=== PATIENT | female | born 1970 | race Caucasian/White ===

== ENCOUNTER 2016-12-11 08:04 | Emergency (ER) | payer OTHER, BC ==
[2016-12-11] MEDS ORDERED: ACETAMINOPHEN 325 MG TABLET PO ONE (08:57)
[2016-12-11] MEDS ORDERED: ACETAMINOPHEN 325 MG TABLET ONE (09:01)
--- NOTE | 2016-12-11 09:07 | ERNOTE ---
Head Injury HPI - General Injury to: head Time Seen by Provider: 12/11/16 08:46 Source: patient Exam Limitations: no limitations - Immun/Allergies/Home Medications Immunization: IMMUNIZATION HX Immunizations Up to Date No History of Influenza Vaccine No Hx Pneumococcal Vaccination No Allergies/Adverse Reactions: Allergies Allergy/AdvReac Type Severity Reaction Status Date / Time No Known Allergies Allergy Verified 12/11/16 08:24 Home Medications: HOME MEDICATIONS ALPRAZolam [Xanax] 0.25 mg PO BID PRN 12/07/14 [Last Taken Unknown] ARIPiprazole [Abilify] 5 mg PO DAILY 12/07/14 [Last Taken Unknown] Venlafaxine HCl [Effexor Xr] 225 mg PO DAILY 12/25/14 [Last Taken Unknown] Metoprolol Succinate [Toprol Xl] 100 mg PO DAILY 03/24/15 [Last Taken 03/25/15 13:30] traMADol HCL [Ultram] 50 - 100 mg PO QID PRN 03/24/15 [Last Taken Unknown] traZODone HCL [Desyrel] 50 mg PO DAILY 03/24/15 [Last Taken Unknown] - History of Present Illness Narrative: Patient was at work, lost her balance and fell backwards hitting her head on a piece of metal and her lower back on the concrete floor. She denies any loss of consciousness, is nauseated, no vomiting, headache 5/10, low back pain aggravated from chronic low back pain with sciatica. She also has pain and swelling on her right forearm Occurred: this morning Location Occurred: work Severity: moderate Head Injury Location: parietal Method of Injury: Reports: fell Reason for Fall: Reports: lost balance Loss of Consciousness: Reports: no loss of consciousness Associated Symptoms: Reports: nausea. Denies: chest pain, cough, shortness of breath, vomiting Review of Systems - Review of Systems Constitutional: Absent: recent illness, fever EYE: Absent: double vision ENT: Absent: nasal drainage, sore throat Respiratory: Absent: shortness of breath, cough Cardiology: Absent: chest pain Gastrointestinal/Abdominal: Present: nausea. Absent: vomiting, diarrhea, abdominal pain Genitourinary: Present: no symptoms reported Musculoskeletal: Present: See HPI, back pain Neurological: Present: headache. Absent: weakness, numbness - Patient's Past Medical History Patient History - Medical: Anxiety, Chronic Pain, Depression Patient History - Cardiac/Respiratory: Hypertension Patient History - Cancer: No Hx of Cancer Patient History - Surgical Procedures: Cholecystectomy, Other Patient History - Other: None LMP (females 10-50): norplant - Social History Living Situations: significant other Abuse History: No History of abuse Psych History: Hx of Anxiety, Hx of Depression Smoking Status: Current every day smoker Alcohol Use: none Drug Use: none, other - Immunizations Immunizations Up to Date: No Hx Pneumococcal Vaccination: No History of Influenza Vaccine: No Physical Exam - Physical Exam General Appearance: Present: wd/wn, alert, no apparent distress, obese Eye Exam: Normal inspection: bilateral, PERRL: bilateral Ears, Nose, Throat: Present: normal ENT inspection, normal pharynx, other - parietal midline about 3cm area of swelling and tenderness, skin intact Neck: Present: normal inspection, nontender, supple, full range of motion Respiratory: Present: no respiratory distress, normal breath sounds, no accessory muscle use, chest nontender, lungs clear Cardiovascular/Chest: Present: regular rate, rhythm, no murmur, normal peripheral pulses Gastrointestinal/Abdominal: Present: nontender, nondistended, soft Extremity Exam: Present: normal inspection, bony tenderness - lumbar spine Neurological Exam: Present: alert, oriented, normal mood/affect, no motor/ sensory deficits Skin Exam: Present: normal color, warm/dry ED Progress - Vital Signs Patient's Vital Signs:: I have reviewed the patient's vital signs. Vital Signs: Vital Signs 12/11/16 08:16 Temperature 37.0 C Pulse Rate 91 Respiratory 14 Rate Blood Pressure 136/94 O2 Sat by Pulse 98 Oximetry - X-Ray X-Ray #1 X-Ray: lumbosacral - no acute Interpretation: Reviewed by me X-Ray #2 X-Ray: forearm - no fracture Interpretation: Reviewed by me - Progress/Reassessment Chief Complaint: Head Injury Progress Note-Subjective: 12/11/16 10:17 patient feeling better, discussed test results Departure Clinical Impression: Concussion Qualifiers: Encounter type: initial encounter Loss of consciousness presence/duration: without LOC Qualified Code(s): S06.0X0A - Concussion without loss of consciousness, initial encounter Scalp contusion Qualifiers: Encounter type: initial encounter Qualified Code(s): S00.03XA - Contusion of scalp, initial encounter Low back strain Qualifiers: Encounter type: initial encounter Qualified Code(s): S39.012A - Strain of muscle, fascia and tendon of lower back, initial encounter - Departure Disposition: Home self-care Condition: Good Instructions: Concussion, Adult, [id number], Low Back Strain With Rehab- [facility] Additional Instructions: take over the counter ibuprofen (200mg) three tablets every six hours as needed for pain follow up with the work comp clinic Referrals: Tiarra Parker DO [Primary Care Provider] -
[2016-12-11 10:23] VITALS: BP 120/84
== END 2016-12-11 10:34 | disposition home or self-care (01) ==
LOC: ER 08:04
DX: S06.0X0A Concussion without loss of consciousness, initial encounter (principal); S00.03XA Contusion of scalp, initial encounter; S39.012A Strain of muscle, fascia and tendon of lower back, initial encounter; W19.XXXA Unspecified fall, initial encounter; Y93.89 Activity, other specified; Y99.0 Civilian activity done for income or pay

== ENCOUNTER 2017-04-04 10:41 | Emergency (ER) | payer BC ==
--- OUTSIDE RECORDS SUMMARY | 2017-04-04 10:58 | XMS REPORT | Summary of Care ---
:1970 Author Organization [facility] Address [address] [place] [address] Care Team Providers Name Role Phone Olivia Fuller Primary Care Physician Encounter Date(s): 11/24/16 - 11/24/16 [facility], [address] [place], [place] [address] Discharge Disposition: 01 Discharged to Home or Self Care Attending Physician: Dakotah Ngo MD Referring Physician: Dakotah Ngo MD Vital Signs No data available for this section Problem List No data available for this section Allergies, Adverse Reactions, Alerts No Known Medication Allergies Medications Abilify Daily, 0 Refill(s), Start Date: 07/13/15 14:05:00 [employer] Start Date: 07/13/15 Status: OrderedEffexor XR Oral, Daily, 0 Refill(s), Start Date: 07/13/15 14:05:00 [employer] Start Date: 07/13/15 Status: Orderedgabapentin 300 mg oral capsule 1 cap(s), Oral, TID, # 90 cap(s), 0 Refill(s), Start Date: 09/07/15 13:07:32 [employer] , Pharmacy: [facility] Start Date: 09/07/15 Stop Date: 11/16/15 Status: Completedgabapentin 300 mg oral capsule 1 cap(s), Oral, TID, # 90 cap(s), 0 Refill(s), Start Date: 07/13/15 14:33:00 [employer] , Pharmacy: [facility] Start Date: 07/13/15 Stop Date: 09/07/15 Status: Completedgabapentin 300 mg oral capsule 1 cap(s), Oral, TID, # 90 cap(s), 0 Refill(s), Start Date: 01/07/16 13:03:09 CDT , Pharmacy: [facility] Start Date: 01/07/16 Stop Date: 08/22/16 Status: Completedgabapentin 300 mg oral capsule 1 cap(s), Oral, TID, # 90 cap(s), 0 Refill(s), Start Date: 11/16/15 10:31:08 [employer] , Pharmacy: [facility] Start Date: 11/16/15 Stop Date: 01/07/16 Status: CompletedHYDROcodone-acetaminophen 5 mg-325 mg oral tablet tab(s), Oral, q6hr interval, 0 Refill(s), Start Date: 07/13/15 14:04:00 [employer] Start Date: 07/13/15 Stop Date: 08/17/15 Status: Completedmetoprolol succinate Oral, Daily, 0 Refill(s), Start Date: 07/13/15 14:03:00 [employer] Start Date: 07/13/15 Status: OrderedNorco 5 mg-325 mg oral tablet 1 tab(s), Oral, q6hr, PRN for pain, # 30 tab(s), 0 Refill(s), Start Date: 15:58:00 [employer], other reason (Rx) Start Date: 08/17/15 Stop Date: 09/07/15 Status: CompletedNorco 5 mg-325 mg oral tablet 1 tab(s), Oral, TID, PRN for pain, # 90 tab(s), 0 Refill(s), Start Date: 12:59:10 [employer], other reason (Rx) Start Date: 10/14/15 Stop Date: 11/16/15 Status: CompletedNorco 5 mg-325 mg oral tablet 1 tab(s), Oral, TID, PRN for pain, WRITTEN RX FOR PT TO DIRECTOR OF CUSTOMER SERVICE//JMP,SOLUTION ANALYST, # 90 tab(s), 0 Refill(s), Start Date: 11/16/15 10:29:34 [employer] Special Instructions: WRITTEN RX FOR PT TO DIRECTOR OF CUSTOMER SERVICE//JMP,SOLUTION ANALYST Start Date: 11/16/15 Stop Date: 08/22/16 Status: CompletedNorco 5 mg-325 mg oral tablet See Instructions, PRN for pain, take 1-2 tab(s) Oral q4-6hr prn pain, # 90 tab(s ), 0 Refill(s), Start Date: 09/07/15 13:13:27 [employer], other reason (Rx) Special Instructions: take 1-2 tab(s) Oral q4-6hr prn pain Start Date: 09/07/15 Stop Date: 10/14/15 Status: CompletedtraMADol 50 mg oral tablet 1 tab(s), Oral, q12hr, PRN as needed for pain, 0 Refill(s), Start Date: 14:04:00 [employer] Start Date: 08/22/16 Status: Ordered Results No data available for this section Immunizations No data available for this section Procedures Procedure Date Related Diagnosis Body Site Laparoscopic cholecystectomy 1991 Carpal tunnel release Social History No data available for this section Assessment and Plan No data available for this section
--- NOTE | 2017-04-04 11:04 | ERNOTE ---
GI Bleeding/Rectal Pain ER Date of Service: 04/04/17 Presenting Symptoms: rectal bleeding Time Seen by Provider: 04/04/17 10:51 Source: patient Exam Limitations: no limitations Immunizations: IMMUNIZATION HX Immunizations Up to Date Yes History of Influenza Vaccine No Hx Pneumococcal Vaccination No Allergies/Adverse Reactions: Allergies No Known Allergies Allergy (Verified 04/04/17 10:49) Home Medications: HOME MEDICATIONS ALPRAZolam [Xanax] 0.25 mg PO BID PRN 12/07/14 [Last Taken Unknown] ARIPiprazole [Abilify] 5 mg PO DAILY 12/07/14 [Last Taken Unknown] Venlafaxine HCl [Effexor Xr] 225 mg PO DAILY 12/25/14 [Last Taken Unknown] Metoprolol Succinate [Toprol Xl] 100 mg PO DAILY 03/24/15 [Last Taken 03/25/15 13:30] traMADol HCL [Ultram] 50 - 100 mg PO QID PRN 03/24/15 [Last Taken Unknown] FLUoxetine HCL [Prozac] 40 mg PO DAILY 04/04/17 [Last Taken Unknown] Narrative: Patient presents to the ED for blood in stool. She relates that she has been having this daily for a week. She will have blood with every bowel movement. This has been 1-2 times per day. Never blood without bowel movement. She is not sure how much blood but blood with stool and with wiping. She relates chronic diarrhea, not new. No fever, no abdominal pain, no vomiting. No dizziness or SOB. She has had bleeding from her hemorrhoids in the past but it has never lasted this long. Timing: intermittent Quality/Severity: Present: other - no rectal pain Nausea/Vomiting: Present: blood, other - no clots Abdominal Pain: Present: none Rectal Bleeding: Present: blood mixed with stool. Absent: without stool Associated Symptoms: Denies: maroon stools, black stools, tarry stools, constipation/hard stools, fainting, dizziness, light headedness, rectal pain Prior Treament: Denies: recently seen Review of Systems - Review of Systems Constitutional: Absent: fever Respiratory: Absent: shortness of breath Cardiology: Absent: chest pain Gastrointestinal/Abdominal: Absent: vomiting, abdominal pain Genitourinary: Absent: dysuria Musculoskeletal: Present: no symptoms reported Skin: Absent: rash Neurological: Absent: weakness - Patient's Past Medical History Patient History - Medical: Chronic Pain, Headache Patient History - Cardiac/Respiratory: No pertinent hx Patient History - Cancer: No Hx of Cancer Patient History - Surgical Procedures: Cholecystectomy, Other Patient History - Other: None LMP (females 10-50): other - Social History Living Situations: home Abuse History: No History of abuse Psych History: Hx of Anxiety, Hx of Depression Smoking Status: Current every day smoker Alcohol Use: rarely Drug Use: none, other - Immunizations Immunizations Up to Date: Yes Hx Pneumococcal Vaccination: No History of Influenza Vaccine: No Physical Exam - Physical Exam General Appearance: Present: alert, no apparent distress Head Exam: Present: normal inspection, no evidence of injury Eye Exam: Normal inspection: bilateral, PERRL: bilateral Ears, Nose, Throat: Present: normal ENT inspection Neck: Present: normal inspection Respiratory: Present: no respiratory distress, normal breath sounds, no accessory muscle use, lungs clear Cardiovascular/Chest: Present: regular rate, rhythm Gastrointestinal/Abdominal: Present: normal bowel sounds, nontender, nondistended, soft, no organomegaly. Absent: tenderness Rectal Exam: Present: normal rectal tone, other - with female RN present. External hemorrhoids noted. One small area that may have been bleeding. No thrombosis. No gross blood on DAYSI. No masses. No tenderness. Lab reports guaiac negative at this time. No stool present in vault.. Absent: black stool Back Exam: Present: normal range of motion Extremity Exam: Present: normal inspection Neurological Exam: Present: alert, normal mood/affect, no motor/sensory deficits Skin Exam: Present: normal color, warm/dry ED Progress - Results and Orders Patient's Lab Results:: I have reviewed the patient's lab results. - Vital Signs Patient's Vital Signs:: I have reviewed the patient's vital signs. Vital Signs: Vital Signs 04/04/17 10:45 Temperature 36.8 C Pulse Rate 86 Respiratory 16 Rate Blood Pressure 125/74 O2 Sat by Pulse 98 Oximetry - Progress/Reassessment Chief Complaint: GI Bleed Progress Note-Subjective: 04/04/17 12:09 No further bleeding here. This has been going on for 6 days. Not worsening overall. Not tachycardic or hypotensive. No active bleeding at this time. There is a suspicious area on one of her hemorrhoids that may have been bleeding. I offered her observation but she declines this. She understands risks and benefits. I scheduled her an appointment with her PCP tomorrow AM after discussion with Dr Jovel. I discussed warning signs and reasons to return as well as the need for close f/u. 04/04/17 12:10 Departure Clinical Impression: Blood in stool - Departure Disposition: Home self-care Condition: Stable Additional Instructions: Rest. Fluids. Follow-up with your doctor tomorrow at 10:30 am (Dr Parker) TOMORROW. You will be re-checked tomorrow and will discuss further testing. Return here sooner if you change your mind about observation, develop increased bleeding, lightheadedness or if your condition worsens or changes in any way. Your doctor will re-check you in the morning tomorrow. Referrals: Tiarra Parker DO [Primary Care Provider] -
[2017-04-04 11:13] LABS: Hematocrit 34.6 % (37.0-47.0); Hemoglobin 11.9 gm/dL (12.5-16.0); Mean Cell Volume 84.6 fl (78-100); Mean Corpuscular Hemoglobin 29.1 pg (27-31); Mean Corpuscular Hgb Conc 34.4 g/dl (32-36); Neutrophil # 6.7 K/mm3 (1.3-6.0); Platelet Count 322 K/mm3 (150-450); Red Blood Count 4.09 M/mm3 (4.2-5.4); Red Cell Distribution Width 13.5 % (11.5-14.0); White Blood Count 11.3 K/mm3 (4.0-10.5)
[2017-04-04 11:29] LABS: Albumin * 3.3 gm/dl (3.4-5.0); Anion Gap 14.4 mmol/L (6.8-13.8); BUN/Creatinine Ratio 9.8 (9.0-21.6); Bilirubin, Total 0.2 mg/dL (0.0-1.1); Ca. Corrected For Albumin 8.7 mg/dL (8.4-10.2); Calcium * 8.5 mg/dL (7.9-10.9); Potassium 3.4 mmol/L (3.4-4.6)
[2017-04-04 12:32] VITALS: BP 117/82
== END 2017-04-04 12:24 | disposition home or self-care (01) ==
LOC: ER 10:41
DX: K92.1 Melena (principal); F17.200 Nicotine dependence, unspecified, uncomplicated; F41.9 Anxiety disorder, unspecified; F32.9 Major depressive disorder, single episode, unspecified; G89.29 Other chronic pain